=== PATIENT | female | born 1995 | race Caucasian/White ===

== ENCOUNTER 2020-06-07 12:26 | Emergency (ER) | payer OTHER ==
[2020-06-07 13:04] LABS: BASOPHILS # (AUTO) 0.1 10^3/uL (0.0-0.1); EOSINOPHILS # (AUTO) 0.2 10^3/uL (0.0-0.7); EOSINOPHILS % (AUTO) 2.5 %; HGB - HEMOGLOBIN 12.4 g/dL (12.0-16.0); LYMPHOCYTES # (AUTO) 1.4 10^3/uL (1.5-3.5); LYMPHOCYTES % (AUTO) 23.3 %; MEAN CORPUSCULAR HEMOGLOBIN 29.1 pg (27.0-31.0); MEAN CORPUSCULAR HGB CONC 33.4 g/dL (32.0-36.0); MEAN CORPUSCULAR VOLUME 87.1 fL (81.0-99.0); MONOCYTES # (AUTO) 0.5 10^3/uL (0.0-1.0); MONOCYTES % (AUTO) 8.3 %; NEUTROPHILS # (AUTO) 3.9 10^3/uL (1.5-6.6); NEUTROPHILS % (AUTO) 64.6 %; PLT - PLATELET COUNT 211 10^3/uL (130-450); RED BLOOD COUNT 4.26 10^6/uL (4.20-5.40); RED CELL DISTRIBUTION WIDTH 12.6 % (12.0-15.0)
[2020-06-07 13:20] LABS: ALBUMIN 4.5 g/dL (3.2-5.5); ALBUMIN/GLOBULIN RATIO 1.5 (1.0-2.2); BILIRUBIN,TOTAL 1.3 mg/dL (0.2-1.0); CALCIUM 9.1 mg/dL (8.5-10.3); CREATININE 0.6 mg/dL (0.4-1.0); TOTAL PROTEIN 7.6 g/dL (6.7-8.2)
[2020-06-07 13:27] LABS: BILIRUBIN,URINE NEGATIVE (NEGATIVE); GLUCOSE, URINE (UA) NEGATIVE (NEGATIVE); KETONES,URINE (UA) NEGATIVE (NEGATIVE); LEUKOCYTE ESTERASE, URINE NEGATIVE (NEGATIVE); NITRITE,URINE NEGATIVE (NEGATIVE); OCCULT BLOOD,URINE LARGE (NEGATIVE); PROTEIN,URINE NEGATIVE (NEGATIVE); UROBILINOGEN,URINE 0.2 (NORMAL) E.U./dL (NORMAL)
[2020-06-07 13:36] LABS: CLARITY,URINE HAZY (CLEAR)
[2020-06-07 13:49] LABS: BACTERIA,URINE Rare /HPF (None Seen); SQUAMOUS EPITHELIAL CELL,UR FEW Squamous (<= Few)
--- NOTE | 2020-06-07 14:01 | ED Physician Documentation ---
History of Present Illness - Stated complaint Stated Complaint: FEMALE /8 WK OB - Chief complaint Chief Complaint: Abd Pain - History obtained from History obtained from: Patient - History of Present Illness Timing: How many days ago (several) Pain level max: 3 Pain level now: 2 - Additonal information Additional information: Patient is a 25-year-old female who presents to the emergency department, 2, para 1. She is about 8 weeks . She states that she has had vaginal bleeding and spotting for the past 2 to 3 days. Occasional cramping as well. Does not currently have a PCP here or an OB. Came in for evaluation. Nothing makes it better or worse. No fevers. No chills. Review of Systems Ten Systems: 10 systems reviewed and negative Constitutional: denies: Fever, Chills Ears: denies: Ear pain Nose: denies: Rhinorrhea / runny nose, Congestion Respiratory: denies: Cough GI: denies: Vomiting, Diarrhea : denies: Dysuria, Frequency, Hesitancy Skin: denies: Rash Musculoskeletal: denies: Neck pain, Back pain Neurologic: denies: Headache PD PAST MEDICAL HISTORY - Past Medical History Past Medical History: No - Past Surgical History Past Surgical History: No - Present Medications Home Medications: Ambulatory Orders Medication Instructions Recorded Confirmed No Known Home Medications 06/07/20 06/07/20 - Allergies Allergies/Adverse Reactions: Allergies Allergy/AdvReac Type Severity Reaction Status Date / Time No Known Drug Allergies Allergy Verified 06/07/20 12:30 - Social History Does the pt smoke?: No Smoking Status: Never smoker Does the pt drink ETOH?: No - Immunizations Immunizations are current?: Yes PD ED PE NORMAL - Vitals Vital signs reviewed: Yes - General General: Alert and oriented X 3, No acute distress - HEENT HEENT: Moist mucous membranes - Neck Neck: Supple, no meningeal sign - Cardiac Cardiac: RRR - Respiratory Respiratory: No respiratory distress, Clear bilaterally - Abdomen Abdomen: Soft, Non tender, Non distended - Derm Derm: Warm and dry - Extremities Extremities: No edema - Neuro Neuro: Alert and oriented X 3 - Psych Psych: Normal mood, Normal affect Results - Vitals Vitals: Vital Signs - 24 hr 06/07/20 06/07/20 12:30 16:12 Temperature 36.9 C Heart Rate 87 78 Respiratory 19 16 Rate Blood Pressure 119/61 122/77 O2 Saturation 100 100 Oxygen O2 Source Room air - Labs Labs: Laboratory Tests 06/07/20 06/07/20 06/07/20 12:53 12:53 12:53 WBC 6.0 RBC 4.26 Hgb 12.4 Hct 37.1 MCV 87.1 MCH 29.1 MCHC 33.4 RDW 12.6 Plt Count 211 MPV 10.0 Neut # (Auto) 3.9 Lymph # (Auto) 1.4 L [place] # (Auto) 0.5 Eos # (Auto) 0.2 Baso # (Auto) 0.1 Absolute Nucleated RBC 0.00 Nucleated RBC % 0.0 Sodium 138 Potassium 3.6 Chloride 103 Carbon Dioxide 24 Anion Gap 11.0 BUN 11 Creatinine 0.6 Estimated GFR (MDRD) 123 Glucose 101 H Calcium 9.1 Total Bilirubin 1.3 H AST 12 ALT 15 Alkaline Phosphatase 36 L Total Protein 7.6 Albumin 4.5 Globulin 3.1 Albumin/Globulin Ratio 1.5 Lipase 29 HCG, Quant Urine Color Urine Clarity Urine pH Ur Specific [place] Urine Protein Urine Glucose (UA) Urine Ketones Urine Occult Blood Urine Nitrite Urine Bilirubin Urine Urobilinogen Ur Leukocyte Esterase Urine RBC Urine WBC Ur Squamous Epith Cells Urine Bacteria Ur Microscopic Review Urine Culture Comments Blood Type A NEGATIVE 06/07/20 06/07/20 12:53 13:24 WBC RBC Hgb Hct MCV MCH MCHC RDW Plt Count MPV Neut # (Auto) Lymph # (Auto) [place] # (Auto) Eos # (Auto) Baso # (Auto) Absolute Nucleated RBC Nucleated RBC % Sodium Potassium Chloride Carbon Dioxide Anion Gap BUN Creatinine Estimated GFR (MDRD) Glucose Calcium Total Bilirubin AST ALT Alkaline Phosphatase Total Protein Albumin Globulin Albumin/Globulin Ratio Lipase HCG, Quant 9113.00 Urine Color LT. YELLOW Urine Clarity HAZY Urine pH 6.0 Ur Specific [place] 1.015 Urine Protein NEGATIVE Urine Glucose (UA) NEGATIVE Urine Ketones NEGATIVE Urine Occult Blood LARGE H Urine Nitrite NEGATIVE Urine Bilirubin NEGATIVE Urine Urobilinogen 0.2 (NORMAL) Ur Leukocyte Esterase NEGATIVE Urine RBC 6-10 H Urine WBC 0-3 Ur Squamous Epith Cells FEW Squamous Urine Bacteria Rare Ur Microscopic Review INDICATED Urine Culture Comments NOT INDICATED Blood Type - Rads (name of study) OB US Radiology: Prelim report reviewed, EMP read contemporaneously PD MEDICAL DECISION MAKING - ED course Complexity details: reviewed results, re-evaluated patient, considered differential (No evidence of ectopic at this time), d/w patient ED course: 25-year-old female with early versus nonviable . Recommend follow-up with OB for repeat hCG testing. If she is unable to be seen within the next 3 days, she can return here for repeat hCG. Patient counseled regarding signs and symptoms for which I believe and urgent re-evaluation would be necessary. Patient with good understanding of and agreement to plan and is comfortable going home at this time This document was made in part using voice recognition software. While efforts are made to proofread this document, sound alike and grammatical errors may occur. IMPRESSION: 1. Retroverted and retroflexed uterus contains an empty, irregular intrauterine fluid collection. Differential diagnosis includes early or nonviable . Continued clinical follow-up and serial beta hCG levels. 2. Right ovarian corpus luteum. 3. Preliminary report given by the snowmobile mechanic to the ordering provider. Departure - Departure Disposition: 01 Home, Self Care Clinical Impression: Vaginal bleeding affecting early Condition: Good Instructions: ED Miscarriage Poss Follow-Up: [facility] [Provider Group] - Within 3 Days Comments: Follow-up with OB for a repeat hCG level in 3 days. Your hCG level today is around 9000. If your hCG level is increasing, this would indicate an ongoing and they will likely want to repeat an ultrasound in 1 to 2 weeks. If your hCG is decreasing, this would likely indicate a miscarriage. Return if you worsen. If you are unable to be seen by OB within the next 3 days, return here for your hCG testing. Discharge Date/Time: 06/07/20 16:12
[2020-06-07 16:22] VITALS: BP 122/77
--- NOTE | 2020-06-07 16:41 | Ultrasound Report ---
PROCEDURE: OB First Trimester w/TV INDICATIONS: 8 weeks preg, vag bleed OUTSIDE/PRIOR DATING DATA: Last menstrual period (LMP): 03/14/2020. LMP-based estimated date of delivery (WALTER): 01/18/2021. First dating scan (date and location): 06/07/2020. Estimated date of delivery (WALTER) from first dating scan: Not applicable. TECHNIQUE: Real-time scanning was performed of the fetus and maternal pelvic organs, with image documentation. Endovaginal scanning was also performed to better visualize the fetus and maternal ovaries. COMPARISON: None available FINDINGS: Embryo: Fundal fluid collection is present within the uterus. The shape is ovoid and the margin is i rregular. There is a mild decidual response. No products of conception are identified. Mean gestation al sac diameter is 1.17 cm which would correspond to a 6 week 0 day +/- 12 day gestation. Measurement variability in dating: +/- 4 weeks by LMP, +/- 7 days by mean sac diameter (use before 6 weeks gestation if crown-rump length not able to be measured), +/- 5 days by crown-rump length (6-12 weeks gestation). Maternal organs: The uterus is retroverted and retroflexed. The left ovary has a normal follicular a ppearance and blood flow without corpus luteum identified. The right ovary contains several follicles and a peripherally hypervascular corpus luteum measuring 2.0 cm. No free pelvic fluid. IMPRESSION: 1. Retroverted and retroflexed uterus contains an empty, irregular intrauterine fluid collection. Dif ferential diagnosis includes early or nonviable . Continued clinical follow-up and serial beta hCG levels. 2. Right ovarian corpus luteum. 3. Preliminary report given by the manga artist to the ordering provider. Reviewed by: Hermelinda Hurtado MD on 06/07/2020 3:39 PM [facility] Approved by: Hermelinda Hurtado MD on 06/07/2020 3:39 PM [facility] Station ID: [id number]
== END 2020-06-07 16:12 | disposition home or self-care (01) ==
LOC: ED 12:26
DX: O20.9 Hemorrhage in early pregnancy, unspecified (principal); O34.81 Maternal care for other abnormalities of pelvic organs, first trimester; N83.11 Corpus luteum cyst of right ovary; Z3A.08 8 weeks gestation of pregnancy
CPT/HCPCS: 36415; 80053; 81001; 81003; 83690; 84702; 85025; 86900; 86901; 87086; 99284

== ENCOUNTER 2020-06-09 20:39 | Emergency (ER) | payer OTHER ==
[2020-06-09 21:02] LABS: BASOPHILS # (AUTO) 0.1 10^3/uL (0.0-0.1); BASOPHILS % (AUTO) 0.8 %; EOSINOPHILS # (AUTO) 0.2 10^3/uL (0.0-0.7); EOSINOPHILS % (AUTO) 2.7 %; HGB - HEMOGLOBIN 12.8 g/dL (12.0-16.0); LYMPHOCYTES # (AUTO) 2.4 10^3/uL (1.5-3.5); LYMPHOCYTES % (AUTO) 28.4 %; MEAN CORPUSCULAR HEMOGLOBIN 28.4 pg (27.0-31.0); MEAN CORPUSCULAR HGB CONC 32.6 g/dL (32.0-36.0); MEAN CORPUSCULAR VOLUME 87.1 fL (81.0-99.0); MEAN PLATELET VOLUME 10.1 fL (7.9-10.8); MONOCYTES # (AUTO) 0.8 10^3/uL (0.0-1.0); MONOCYTES % (AUTO) 9.5 %; NEUTROPHILS % (AUTO) 58.3 %; PLT - PLATELET COUNT 241 10^3/uL (130-450); RED BLOOD COUNT 4.51 10^6/uL (4.20-5.40); RED CELL DISTRIBUTION WIDTH 12.3 % (12.0-15.0); WHITE BLOOD COUNT 8.6 x10^3/uL (4.8-10.8)
[2020-06-09 21:15] VITALS: BP 117/66
[2020-06-09 21:15] LABS: BILIRUBIN,URINE NEGATIVE (NEGATIVE); CLARITY,URINE CLEAR (CLEAR); GLUCOSE, URINE (UA) NEGATIVE (NEGATIVE); KETONES,URINE (UA) NEGATIVE (NEGATIVE); LEUKOCYTE ESTERASE, URINE NEGATIVE (NEGATIVE); NITRITE,URINE NEGATIVE (NEGATIVE); OCCULT BLOOD,URINE LARGE (NEGATIVE); PROTEIN,URINE NEGATIVE (NEGATIVE); UROBILINOGEN,URINE 0.2 (NORMAL) E.U./dL (NORMAL)
[2020-06-09 21:19] LABS: ALBUMIN 4.6 g/dL (3.2-5.5); ALBUMIN/GLOBULIN RATIO 1.5 (1.0-2.2); BILIRUBIN,TOTAL 0.7 mg/dL (0.2-1.0); CALCIUM 9.3 mg/dL (8.5-10.3); CREATININE 0.6 mg/dL (0.4-1.0); TOTAL PROTEIN 7.7 g/dL (6.7-8.2)
[2020-06-09 21:21] LABS: BACTERIA,URINE None Seen /HPF (None Seen); SQUAMOUS EPITHELIAL CELL,UR RARE Squamous (<= Few)
[2020-06-09] MEDS ORDERED: KETOROLAC 30 MG/ML VIAL IVP STA (21:34)
[2020-06-09] MEDS ORDERED: ONDANSETRON 4 MG/2 ML VIAL IVP STA (21:34)
--- NOTE | 2020-06-09 22:12 | ED Physician Documentation ---
PD HPI FEMALE - Stated complaint Stated Complaint: ABD PX,FEMALE - Chief complaint Chief Complaint: Abd Pain - History obtained from History obtained from: Patient - History of Present Illness Timing - onset: Yesterday Timing - duration: Days (2) Timing - details: Gradual onset Pain level max: 0 Pain level max: 0 Associated symptoms: No: Fever, Chest/shoulder pain, Abdominal pain, Back pain Contributing factors: OB-CUSTOMER CARE VOICE CONSULTANT History: G (2), P (1) - Additional information Additional information: 25-year-old female presents with increasing abdominal pain. She was seen here 2 days ago and was having a possible miscarriage. She feels that she passed tissue yesterday is having continued cramping today. She states she normally has painful periods, but this is more painful than usual. No fevers. No chills. Nothing makes it better or worse. Has not taken anything for the pain. Review of Systems Constitutional: denies: Fever, Chills Respiratory: denies: Cough GI: denies: Vomiting : denies: Dysuria, Frequency, Hesitancy Skin: denies: Rash Musculoskeletal: denies: Neck pain, Back pain Neurologic: denies: Headache PD PAST MEDICAL HISTORY - Past Medical History Past Medical History: No - Past Surgical History Past Surgical History: No - Present Medications Home Medications: Ambulatory Orders Medication Instructions Recorded Confirmed Ibuprofen [Motrin] 800 mg PO Q8H PRN #30 tab 06/09/20 Ondansetron Odt [Zofran] 4 mg TL Q6H PRN #10 tab 06/09/20 - Allergies Allergies/Adverse Reactions: Allergies Allergy/AdvReac Type Severity Reaction Status Date / Time No Known Drug Allergies Allergy Verified 06/09/20 20:47 - Social History Does the pt smoke?: No Smoking Status: Never smoker Does the pt drink ETOH?: No - Immunizations Immunizations are current?: Yes PD ED PE NORMAL - Vitals Vital signs reviewed: Yes - General General: Alert and oriented X 3, No acute distress, Well developed/nourished - HEENT HEENT: Moist mucous membranes, Pharynx benign - Neck Neck: Supple, no meningeal sign - Cardiac Cardiac: RRR, Strong equal pulses - Respiratory Respiratory: No respiratory distress, Clear bilaterally - Abdomen Abdomen: Soft, Non distended, Other (Mild tenderness palpation diffusely. No peritoneal signs) - Back Back: No CVA TTP, No spinal TTP - Derm Derm: Warm and dry - Extremities Extremities: No edema - Neuro Neuro: Alert and oriented X 3 Results - Vitals Vitals: Vital Signs - 24 hr 06/09/20 06/09/20 06/09/20 20:40 21:14 22:26 Temperature 36.8 C Heart Rate 91 90 90 Respiratory 18 99 H 18 Rate Blood Pressure 128/70 117/66 117/66 O2 Saturation 100 18 L 99 Oxygen O2 Source Room air - Labs Labs: Laboratory Tests 06/09/20 06/09/20 06/09/20 20:57 20:57 20:57 WBC 8.6 RBC 4.51 Hgb 12.8 Hct 39.3 MCV 87.1 MCH 28.4 MCHC 32.6 RDW 12.3 Plt Count 241 MPV 10.1 Neut # (Auto) 5.0 Lymph # (Auto) 2.4 [place] # (Auto) 0.8 Eos # (Auto) 0.2 Baso # (Auto) 0.1 Absolute Nucleated RBC 0.00 Nucleated RBC % 0.0 Sodium 139 Potassium 3.8 Chloride 102 Carbon Dioxide 26 Anion Gap 11.0 BUN 14 Creatinine 0.6 Estimated GFR (MDRD) 123 Glucose 97 Calcium 9.3 Total Bilirubin 0.7 AST 14 ALT 15 Alkaline Phosphatase 39 L Total Protein 7.7 Albumin 4.6 Globulin 3.1 Albumin/Globulin Ratio 1.5 Lipase 40 HCG, Quant 2800.00 Urine Color Urine Clarity Urine pH Ur Specific [place] Urine Protein Urine Glucose (UA) Urine Ketones Urine Occult Blood Urine Nitrite Urine Bilirubin Urine Urobilinogen Ur Leukocyte Esterase Urine RBC Urine WBC Ur Squamous Epith Cells Urine Bacteria Ur Microscopic Review Urine Culture Comments 06/09/20 21:00 WBC RBC Hgb Hct MCV MCH MCHC RDW Plt Count MPV Neut # (Auto) Lymph # (Auto) [place] # (Auto) Eos # (Auto) Baso # (Auto) Absolute Nucleated RBC Nucleated RBC % Sodium Potassium Chloride Carbon Dioxide Anion Gap BUN Creatinine Estimated GFR (MDRD) Glucose Calcium Total Bilirubin AST ALT Alkaline Phosphatase Total Protein Albumin Globulin Albumin/Globulin Ratio Lipase HCG, Quant Urine Color COLORLESS Urine Clarity CLEAR Urine pH 7.0 Ur Specific [place] <=1.005 Urine Protein NEGATIVE Urine Glucose (UA) NEGATIVE Urine Ketones NEGATIVE Urine Occult Blood LARGE H Urine Nitrite NEGATIVE Urine Bilirubin NEGATIVE Urine Urobilinogen 0.2 (NORMAL) Ur Leukocyte Esterase NEGATIVE Urine RBC 6-10 H Urine WBC 0-3 Ur Squamous Epith Cells RARE Squamous Urine Bacteria None Seen Ur Microscopic Review INDICATED Urine Culture Comments NOT INDICATED Procedures - FAST exam (time) 2124 FAST exam: No: Free fluid RUQ, Free fluid LUQ, Free fluid suprapubic PD MEDICAL DECISION MAKING - ED course Complexity details: reviewed results, re-evaluated patient, considered differential, d/w patient ED course: 25-year-old female with what appears to be a miscarriage. hCG has dropped rapidly. No free fluid on bedside ultrasound. Pain well controlled. Discussed the case with OB on-call, Dr. Taylor, recommends follow-up in clinic. Patient was comfortable with this plan. Ectopic precautions given, though felt to be unlikely given her ultrasound and rapidly dropping hCG. Patient counseled regarding signs and symptoms for which I believe and urgent re-evaluation would be necessary. Patient with good understanding of and agreement to plan and is comfortable going home at this time This document was made in part using voice recognition software. While efforts are made to proofread this document, sound alike and grammatical errors may occur. Departure - Departure Disposition: 01 Home, Self Care Clinical Impression: Miscarriage Condition: Good Instructions: ED Miscarriage Completed Follow-Up: [facility] [Provider Group] - Within 1 week Prescriptions: Ibuprofen [Motrin] 800 mg PO Q8H PRN #30 tab PRN Reason: PAIN &/OR FEVER Ondansetron Odt [Zofran] 4 mg TL Q6H PRN #10 tab PRN Reason: Nausea / Vomiting Comments: I did speak with on-call OB today, Dr. Talyor, they will follow you up in the clinic on Sunday. You can call tomorrow for an appointment. Return if you w orsen. You should be feeling better by tomorrow night. Drink plenty of fluids and rest. Heating pads may help as well. Discharge Date/Time: 06/09/20 22:27
[2020-06-09] MEDS ORDERED: ACETAMINOPHEN 325 MG TABLET PO STA (22:22)
== END 2020-06-09 22:27 | disposition home or self-care (01) ==
LOC: ED 20:39
DX: O03.9 Complete or unspecified spontaneous abortion without complication (principal)
CPT/HCPCS: 36415; 80053; 81001; 83690; 84702; 85025; 96374; 99283; 99284; A9270; 81003; 87086

== ENCOUNTER 2020-06-18 08:55 | Outpatient (CLI) | payer OTHER | END 2020-06-18 08:56 | disposition home or self-care (01) | LOC: LAB 08:55 | PROVIDERS: ATTEND Obstetrics & Gynecology | DX: O03.9 Complete or unspecified spontaneous abortion without complication (principal) | CPT/HCPCS: 36415; 84702 ==

== ENCOUNTER 2020-07-19 13:35 | Outpatient (CLI) | payer OTHER | END 2020-07-19 13:36 | disposition home or self-care (01) | LOC: LAB 13:35 | PROVIDERS: ATTEND Obstetrics & Gynecology | DX: O03.9 Complete or unspecified spontaneous abortion without complication (principal); Z67.11 Type A blood, Rh negative | CPT/HCPCS: 36415; 84702 ==